=== PATIENT | female | born 1985 | race Caucasian/White ===

== ENCOUNTER 2018-10-15 15:52 | Emergency (ER) | payer BC ==
--- NOTE | 2018-10-15 17:20 | ER Document Report ---
ED Medical Screen (RME) - General Chief Complaint: Abdominal Pain Stated Complaint: ABDOMINAL PAIN Time Seen by Provider: 10/15/18 17:13 Primary Care Provider: CONRAD CASTANO MD [Primary Care Provider] - Follow up as needed TRAVEL OUTSIDE OF THE [place] IN LAST 30 DAYS: No - HPI Notes: 10/15/18 17:18 Patient is a 33-year-old female with a history of ovarian cyst who presents emergency department complaining of right lower quadrant/pelvic pain that began about a week ago. Patient states that her pain is sharp, but fluctuates in intensity. On occasion she will have some nausea without any vomiting. Patient states that she is urinating more frequently recently. She is having normal bowel movements. No other vaginal discharge, odor, or bleeding, but patient was treated for BV about a week ago. No surgical history to her abdomen. Denies KIM, fever, neck pain, URI, CP, SOB, v/d, or rash. I have treated and performed a rapid initial assessment of this patient. A comprehensive ED assessment and evaluation of the patient, analysis of test results and completion of medical decision making process will be conducted by additional ED providers. PHYSICAL EXAMINATION: GENERAL: Well-appearing, well-nourished and in no acute distress. A&Ox4. Answers questions appropriately. LUNGS: Breath sounds clear to auscultation bilaterally and equal. No wheezes rales or rhonchi. HEART: Regular rate and rhythm without murmurs, rubs, gallops. ABDOMEN: Soft, nondistended abdomen. No guarding, no rebound. Normal bowel sounds present. No CVA tenderness bilaterally. + mild rt lower abd vs pelvic tenderness (cannot elicit thorough abd exam w/o table, however). Extremities: No cyanosis, clubbing, or edema b/l. NEUROLOGICAL: Normal speech, normal gait. PSYCH: Normal mood, normal affect. - Related Data Allergies/Adverse Reactions: latex [Latex] Allergy (Intermediate, Verified 03/26/15 11:15) Hives Past Medical History Pulmonary Medical History: Reports: Hx Asthma, Hx Pneumonia Renal/ Medical History: Reports: Hx Kidney Stones. Denies: Hx Peritoneal Dialysis Psychiatric Medical History: Reports: Hx Depression Past Surgical History: Reports: Hx Kidney (Renal Surgery) - lithotripsy - Immunizations Hx Diphtheria, Pertussis, Tetanus Vaccination: Yes - 2007 Physical Exam - Vital signs Vitals: Temp Pulse Resp BP Pulse Ox 98.3 F 86 18 124/89 H 99 10/15/18 15:57 10/15/18 15:57 10/15/18 15:57 10/15/18 15:57 10/15/18 15:57 Course - Vital Signs Vital signs: Temp Pulse Resp BP Pulse Ox 98.3 F 86 18 124/89 H 99 10/15/18 15:57 10/15/18 15:57 10/15/18 15:57 10/15/18 15:57 10/15/18 15:57 Doctor's Discharge - Discharge Referrals: CONRAD CASTANO MD [Primary Care Provider] - Follow up as needed
[2018-10-15 18:44] LABS: ABSOLUTE BASOPHILS # (AUTO) 0.1 10^3/uL (0.0-0.2); ABSOLUTE LYMPHOCYTES (AUTO) 1.8 10^3/uL (0.5-4.7); ABSOLUTE MONOCYTES (AUTO) 0.5 10^3/uL (0.1-1.4); ABSOLUTE NEUT (AUTO) 7.4 10^3/uL (1.7-8.2); BASOPHILS % (AUTO) 0.6 % (0-2); EOSINOPHILS % (AUTO) 0.3 % (0-6); HEMATOCRIT 40.7 % (36.0-47.0); HEMOGLOBIN 13.9 g/dL (12.0-15.5); LYMPHOCYTES % (AUTO) 18.8 % (13-45); MEAN CORPUSCULAR HEMOGLOBIN 28.8 pg (27.0-33.4); MEAN CORPUSCULAR HGB CONC 34.1 g/dL (32.0-36.0); MEAN CORPUSCULAR VOLUME 85 fl (80-97); MONOCYTES % (AUTO) 4.8 % (3-13); PLATELET COUNT 251 10^3/uL (150-450); RED BLOOD COUNT 4.81 10^6/uL (3.72-5.28); RED CELL DISTRIBUTION WIDTH 12.8 % (11.5-14.0); SEGMENTED NEUTROPHILS % (AUTO) 75.5 % (42-78); TOTAL CELLS COUNTED % (AUTO) 100 %; WHITE BLOOD COUNT 9.8 10^3/uL (4.0-10.5)
[2018-10-15 18:45] LABS: APPEARANCE,URINE CLEAR; BILIRUBIN,URINE NEGATIVE (NEGATIVE); GLUCOSE, URINE NEGATIVE (NEGATIVE); KETONES,URINE NEGATIVE (NEGATIVE); LEUKOCYTE ESTERASE,URINE NEGATIVE (NEGATIVE); NITRITE,URINE POSITIVE (NEGATIVE); PROTEIN,URINE NEGATIVE (NEGATIVE); URINE SPECIFIC GRAVITY 1.006; UROBILINOGEN,URINE NEGATIVE mg/dL (<2.0)
[2018-10-15 18:47] LABS: COLOR,URINE DARK YELLOW
--- NOTE | 2018-10-15 18:57 | RADIOLOGY REPORT (SQ) ---
EXAM DESCRIPTION: U/S NON OB PEL TV W/DOPPLER COMPLETED DATE/TIME: 10/15/2018 6:18 pm REASON FOR STUDY: RLQ pain LMP 09/24/2018 COMPARISON: 04/21/2016 TECHNIQUE: Dynamic and static grayscale images acquired of the pelvis via transvaginal approach and recorded on PACS. Additional selected color Doppler and spectral images recorded. LIMITATIONS: None. FINDINGS: UTERUS: Contour normal. No mass. ENDOMETRIAL STRIPE: No focal or generalized thickening. No masses. CERVIX: 2.2 cm. No nabothian cysts. RIGHT OVARY AND DOPPLER: Normal size. No worrisome masses. Normal arterial vascular flow without evid ence for torsion. 3 cm cyst. LEFT OVARY AND DOPPLER: Ovary not seen. FREE FLUID: None noted. OTHER: Large amount of stool. MEASUREMENTS: UTERUS: 7.6 x 3.9 x 4.8 cm. ENDOMETRIAL STRIPE: 3 mm. RIGHT OVARY: 4.3 x 2.9 x 3.9 cm. LEFT OVARY: Ovary not seen. IMPRESSION: Right ovarian cyst, almost certainly benign. No additional follow-up is required for th is. Constipation. TECHNICAL DOCUMENTATION: JOB ID: [id number] [employer]- All Rights Reserved Rev-11/02 Reading location - IP/workstation name: [email or web address]
[2018-10-15 19:02] LABS: ALANINE AMINOTRANSFERASE 33 U/L (9-52); ALBUMIN 4.1 g/dL (3.5-5.0); ALKALINE PHOSPHATASE 58 U/L (38-126); ANION GAP 8 (5-19); ASPARTATE AMINO TRANSFERASE 23 U/L (14-36); BILIRUBIN,DIRECT 0.1 mg/dL (0.0-0.4); BILIRUBIN,TOTAL 0.5 mg/dL (0.2-1.3); BLOOD UREA NITROGEN 8 mg/dL (7-20); CALCIUM 9.6 mg/dL (8.4-10.2); CARBON DIOXIDE 25 mmol/L (22-30); CHLORIDE 106 mmol/L (98-107); GLUCOSE 89 mg/dL (75-110); POTASSIUM 3.8 mmol/L (3.6-5.0); SODIUM 139.1 mmol/L (137-145)
[2018-10-15] MEDS ORDERED: HYDROCODONE/ACETAMINOPHEN 5-325 MG TABLET PO ONE (22:27)
[2018-10-15] MEDS ORDERED: IBUPROFEN 600 MG TABLET PO ONE (22:27)
--- NOTE | 2018-10-15 22:30 | ER Document Report ---
ED General - General Chief Complaint: Abdominal Pain Stated Complaint: ABDOMINAL PAIN Time Seen by Provider: 10/15/18 17:13 Primary Care Provider: CONRAD CASTANO MD [Primary Care Provider] - Follow up as needed Mode of Arrival: Ambulatory Information source: Patient, Relative, [facility] Records Notes: Patient is a 33-year-old female with a history of ovarian cyst who presents emergency department complaining of right lower quadrant/pelvic pain that began about a week ago. Patient states that her pain is sharp, but fluctuates in intensity. On occasion she will have some nausea without any vomiting. Patient states that she is urinating more frequently recently. She is having normal bowel movements. No other vaginal discharge, odor, or bleeding, but patient was treated for BV about a week ago. No surgical history to her abdomen. Denies KIM, fever, neck pain, URI, CP, SOB, v/d, or rash. TRAVEL OUTSIDE OF THE [place] IN LAST 30 DAYS: No - HPI Onset: Last week Onset/Duration: Intermittent Quality of pain: Achy, Sharp Severity: Mild Associated symptoms: Nausea. denies: Chest pain, Chills, Fever, Vomiting Exacerbated by: Denies Relieved by: Denies Similar symptoms previously: Yes Recently seen / treated by doctor: No - Related Data Allergies/Adverse Reactions: latex [Latex] Allergy (Intermediate, Verified 03/26/15 11:15) Hives Past Medical History - General Information source: Patient, [facility] Records - Social History Smoking Status: Never Smoker Frequency of alcohol use: None Drug Abuse: None Lives with: Spouse/Significant other Family History: Reviewed & Not Pertinent Patient has suicidal ideation: No Patient has homicidal ideation: No Pulmonary Medical History: Reports: Hx Asthma, Hx Pneumonia Renal/ Medical History: Reports: Hx Kidney Stones. Denies: Hx Peritoneal Dialysis Psychiatric Medical History: Reports: Hx Depression Past Surgical History: Reports: Hx Kidney (Renal Surgery) - lithotripsy - Immunizations Hx Diphtheria, Pertussis, Tetanus Vaccination: Yes - 2007 Review of Systems - Review of Systems Notes: REVIEW OF SYSTEMS: CONSTITUTIONAL : Denies fever, chills, or sweats. Denies recent illness. Denies weight loss, recent hospitalizations. EENT: Denies visual changes, eye pain. Denies sore throat, oral lesions, difficulty swallowing. CARDIOVASCULAR: Denies chest pain. Denies palpitations. Denies lower extremity edema. RESPIRATORY: Denies cough. Denies shortness of breath, wheezing. GASTROINTESTINAL: Denies abdominal distention. Denies vomiting, or diarrhea. Denies blood in vomitus, stools, or per rectum. Denies black, tarry stools. Denies constipation. GENITOURINARY: Denies difficulty urinating, painful urination, frequency, b lood in urine, or vaginal discharge. MUSCULOSKELETAL: Denies back or neck pain or stiffness. Denies joint pain or swelling. SKIN: Denies rash, lesions or sores. HEMATOLOGIC : Denies easy bruising or bleeding. LYMPHATIC: Denies swollen glands. NEUROLOGICAL: Denies confusion or altered mental status. Denies loss of consciousness. Denies dizziness or lightheadedness. Denies headache. Denies weakness or paralysis. Denies problems difficulty with ambulation, slurred speech. Denies sensory loss, numbness, or tingling. Denies seizures. PSYCHIATRIC: Denies anxiety or stress. Denies depression, suicidal ideation, or homicidal ideation. Denies visual or auditory hallucinations. Physical Exam - Vital signs Vitals: Temp Pulse Resp BP Pulse Ox 98.3 F 86 18 124/89 H 99 10/15/18 15:57 10/15/18 15:57 10/15/18 15:57 10/15/18 15:57 10/15/18 15:57 - Notes Notes: PHYSICAL EXAMINATION: GENERAL: Well-appearing, well-nourished and in no acute distress. HEAD: Atraumatic, normocephalic. EYES: Pupils equal round and reactive to light, extraocular movements intact, conjunctiva are normal. ENT: Nares patent, oropharynx clear without exudates. Moist mucous membranes. NECK: Normal range of motion, supple without lymphadenopathy LUNGS: Breath sounds clear to auscultation bilaterally and equal. No wheezes rales or rhonchi. HEART: Regular rate and rhythm without murmurs ABDOMEN: Soft, nontender, nondistended abdomen. No guarding, no rebound. No masses appreciated. Female : deferred Musculoskeletal: Normal range of motion, no pitting or edema. No cyanosis. NEUROLOGICAL: Cranial nerves grossly intact. Normal speech, normal gait. Nor mal sensory, motor exams PSYCH: Normal mood, normal affect. SKIN: Warm, Dry, normal turgor, no rashes or lesions noted. Course - Re-evaluation Re-evalutation: 10/15/18 22:23 Laboratory 10/15/18 10/15/18 10/15/18 18:26 18:26 18:26 WBC 9.8 RBC 4.81 Hgb 13.9 Hct 40.7 MCV 85 MCH 28.8 MCHC 34.1 RDW 12.8 Plt Count 251 Seg Neutrophils % 75.5 Lymphocytes % 18.8 Monocytes % 4.8 Eosinophils % 0.3 Basophils % 0.6 Absolute Neutrophils 7.4 Absolute Lymphocytes 1.8 Absolute Monocytes 0.5 Absolute Eosinophils 0.0 Absolute Basophils 0.1 Sodium 139.1 Potassium 3.8 Chloride 106 Carbon Dioxide 25 Anion Gap 8 BUN 8 Creatinine 0.77 Est GFR ( Amer) > 60 Est GFR (Non-Af Amer) > 60 Glucose 89 Calcium 9.6 Total Bilirubin 0.5 Direct Bilirubin 0.1 Neonat Total Bilirubin Not Reportable Neonat Direct Bilirubin Not Reportable Neonat Indirect Bili Not Reportable AST 23 ALT 33 Alkaline Phosphatase 58 Total Protein 7.0 Albumin 4.1 Urine Color DARK YELLOW Urine Appearance CLEAR Urine pH 5.0 Ur Specific [place] 1.006 Urine Protein NEGATIVE Urine Glucose (UA) NEGATIVE Urine Ketones NEGATIVE Urine Blood SMALL H Urine Nitrite POSITIVE H Urine Bilirubin NEGATIVE Urine Urobilinogen NEGATIVE Ur Leukocyte Esterase NEGATIVE Urine WBC (Auto) 0 Urine RBC (Auto) 0 Urine Bacteria (Auto) TRACE Squamous Epi Cells Auto 1 Urine Mucus (Auto) RARE Urine Ascorbic Acid NEGATIVE Urine HCG, Qual NEGATIVE Transvaginal US 10/15/18 17:19 IMPRESSION: Right ovarian cyst, almost certainly benign. No additional follow- up is required for this. Constipation. Temp Pulse Resp BP Pulse Ox 98.3 F 86 18 124/89 H 99 10/15/18 15:57 10/15/18 15:57 10/15/18 15:57 10/15/18 15:57 10/15/18 15:57 - Vital Signs Vital signs: Temp Pulse Resp BP Pulse Ox 98.3 F 86 18 124/89 H 99 10/15/18 15:57 10/15/18 15:57 10/15/18 15:57 10/15/18 15:57 10/15/18 15:57 - Laboratory Result Diagrams: 10/15/18 18:26 10/15/18 18:26 Laboratory results interpreted by me: 10/15/18 18:26 Urine Blood SMALL H Urine Nitrite POSITIVE H Discharge - Discharge Clinical Impression: Ovarian cyst Qualifiers: Laterality: right Qualified Code(s): N83.201 - Unspecified ovarian cyst, right side Constipation Qualifiers: Constipation type: unspecified constipation type Qualified Code(s): K59.00 - Constipation, unspecified Condition: Good Disposition: HOME, SELF-CARE Instructions: Observation for Appendicitis ([facility]), Ovarian Cyst ([facility]), Constipation ([facility]) Additional Instructions: Follow up with your [id number] hours for further care or return to the ED IMMEDIATELY if symptoms worsen or you have any concerns. If you cannot afford to follow up with your primary care physician a list of low cost clinics have been provided at the end of your discharge papers as well. Most prescribed medications have multiple side effects. The safest thing to do is when filling your prescription speak to your pharmacist regarding possible interactions with your normal home medications and over the counter medications such as Ibuprofen, Tylenol, Benadryl. If you experience any symptoms that cause you discomfort or concern you should discontinue the medication immediately and return to the emergency room or call your primary care physician. Prescriptions: Ketorolac Tromethamine [Toradol 10 mg Tablet] 10 mg PO Q6HP PRN #12 tablet PRN Reason: Ondansetron [Zofran Odt 4 mg Tablet] 1 - 2 tab PO Q4H PRN #15 tab.rapdis PRN Reason: For Nausea/Vomiting Polyethylene Glycol 3350 [Miralax Powder 17 gm/Packet] 1 packet PO DAILY #10 pkg Forms: Elevated Blood Pressure, Return to Work Referrals: CONRAD CASTANO MD [Primary Care Provider] - Follow up as needed CANDICE JORGE MD [ACTIVE STAFF] - Follow up as needed
[2018-10-15 23:21] VITALS: BP 118/61
== END 2018-10-15 23:23 | disposition home or self-care (01) ==
LOC: ER 15:52
DX: N83.201 Unspecified ovarian cyst, right side (principal); K59.00 Constipation, unspecified; R10.31 Right lower quadrant pain; R10.2 Pelvic and perineal pain; R11.0 Nausea; J45.909 Unspecified asthma, uncomplicated; Z91.040 Latex allergy status; Z87.442 Personal history of urinary calculi
CPT/HCPCS: 36415; 76830; 80053; 81001; 81025; 85025; 93976; 99284

== ENCOUNTER → 2019-06-02 | Outpatient (CLI) | payer BC ==
--- NOTE | 2019-06-02 17:06 | RADIOLOGY REPORT (SQ) ---
EXAM DESCRIPTION: CHEST PA/LATERAL COMPLETED DATE/TIME: 06/02/2019 4:40 pm REASON FOR STUDY: MILD INTERMITTENT ASTHMA WITH (ACUTE) EXACERBATION COMPARISON: None. EXAM PARAMETERS: NUMBER OF VIEWS: two views TECHNIQUE: Digital Frontal and Lateral radiographic views of the chest acquired. RADIATION DOSE: NA LIMITATIONS: none FINDINGS: LUNGS AND PLEURA: No opacities, masses or pneumothorax. No pleural effusion. The lung fie lds are hyperexpanded. MEDIASTINUM AND HILAR STRUCTURES: No masses or contour abnormalities. HEART AND VASCULAR STRUCTURES: Heart normal size. No evidence for failure. BONES: No acute findings. HARDWARE: None in the chest. OTHER: No other significant finding. IMPRESSION: NO SIGNIFICANT RADIOGRAPHIC FINDING IN THE CHEST. TECHNICAL DOCUMENTATION: JOB ID: [id number] [employer]- All Rights Reserved Reading location - IP/workstation name: [email or web address]
== END ==
LOC: OD 16:22
PROVIDERS: ATTEND Physician Assistant
DX: J45.21 Mild intermittent asthma with (acute) exacerbation (principal)
CPT/HCPCS: 71046

== ENCOUNTER 2019-06-05 06:13 | Emergency (ER) | payer BC ==
[2019-06-05 07:26] LABS: ABSOLUTE BASOPHILS # (AUTO) 0.1 10^3/uL (0.0-0.2); ABSOLUTE EOSINOPHILS # (AUTO) 0.1 10^3/uL (0.0-0.6); ABSOLUTE LYMPHOCYTES (AUTO) 2.8 10^3/uL (0.5-4.7); ABSOLUTE MONOCYTES (AUTO) 0.7 10^3/uL (0.1-1.4); ABSOLUTE NEUT (AUTO) 11.8 10^3/uL (1.7-8.2); APPEARANCE,URINE CLEAR; BASOPHILS % (AUTO) 0.5 % (0-2); BILIRUBIN,URINE NEGATIVE (NEGATIVE); EOSINOPHILS % (AUTO) 0.7 % (0-6); GLUCOSE, URINE NEGATIVE (NEGATIVE); HEMATOCRIT 40.7 % (36.0-47.0); HEMOGLOBIN 13.6 g/dL (12.0-15.5); KETONES,URINE NEGATIVE (NEGATIVE); LEUKOCYTE ESTERASE,URINE NEGATIVE (NEGATIVE); LYMPHOCYTES % (AUTO) 17.9 % (13-45); MEAN CORPUSCULAR HEMOGLOBIN 28.4 pg (27.0-33.4); MEAN CORPUSCULAR HGB CONC 33.4 g/dL (32.0-36.0); MEAN CORPUSCULAR VOLUME 85 fl (80-97); MONOCYTES % (AUTO) 4.5 % (3-13); NITRITE,URINE NEGATIVE (NEGATIVE); PLATELET COUNT 312 10^3/uL (150-450); PROTEIN,URINE NEGATIVE (NEGATIVE); RED BLOOD COUNT 4.79 10^6/uL (3.72-5.28); RED CELL DISTRIBUTION WIDTH 13.4 % (11.5-14.0); SEGMENTED NEUTROPHILS % (AUTO) 76.4 % (42-78); TOTAL CELLS COUNTED % (AUTO) 100 %; URINE SPECIFIC GRAVITY 1.009; UROBILINOGEN,URINE NEGATIVE mg/dL (<2.0); WHITE BLOOD COUNT 15.5 10^3/uL (4.0-10.5)
[2019-06-05 07:27] LABS: COLOR,URINE STRAW
[2019-06-05 07:40] LABS: URINE AMPHETAMINES SCREEN NEGATIVE; URINE BARBITURATES SCREEN NEGATIVE; URINE COCAINE SCREEN NEGATIVE; URINE METHADONE SCREEN NEGATIVE; URINE PHENCYCLIDINE SCREEN NEGATIVE
[2019-06-05 07:42] LABS: ALBUMIN 4.6 g/dL (3.5-5.0); ALKALINE PHOSPHATASE 75 U/L (38-126); ANION GAP 12 (5-19); ASPARTATE AMINO TRANSFERASE 25 U/L (14-36); BILIRUBIN,DIRECT 0.1 mg/dL (0.0-0.4); BILIRUBIN,TOTAL 0.5 mg/dL (0.2-1.3); BLOOD UREA NITROGEN 13 mg/dL (7-20); CALCIUM 10.2 mg/dL (8.4-10.2); CARBON DIOXIDE 27 mmol/L (22-30); CHLORIDE 101 mmol/L (98-107); GLUCOSE 94 mg/dL (75-110); POTASSIUM 3.7 mmol/L (3.6-5.0); SALICYLATE 1.2 mg/dL (2.0-20.0); TOTAL PROTEIN 7.7 g/dL (6.3-8.2); URINE BENZODIAZEPINES SCREEN UNCONFIRMED POSITIVE; URINE MARIJUANA (THC) SCREEN UNCONFIRMED POSITIVE
[2019-06-05 07:45] LABS: ACETAMINOPHEN < 10 ug/mL (10-30); ALCOHOL < 10 mg/dL (NONE DETECTED)
--- NOTE | 2019-06-05 08:17 | RADIOLOGY REPORT (SQ) ---
EXAM DESCRIPTION: XR CHEST 2 VIEWS COMPLETED DATE/TME: 06/05/2019 06:34 CLINICAL HISTORY: 34 years, Female, cough COMPARISON: 06/02/2019 NUMBER OF VIEWS: Two TECHNIQUE: Two views of the chest LIMITATIONS: None. FINDINGS: Lungs are clear. The heart is normal in size. There is no pneumothorax or pleural effusion. There is no acute fracture. IMPRESSION: No acute cardiopulmonary abnormality copyright 2010 [employer]- All Rights Reserved
--- NOTE | 2019-06-05 08:20 | ER Document Report ---
Entered by RACH ROBERTS SCRIBE 06/05/19 0726 Acting as scribe for:TABBY SHANE MD ED General <ANGELES LYNCH - Last Filed: 06/05/19 09:40> - General Mode of Arrival: Ambulatory Information source: Patient, Parent TRAVEL OUTSIDE OF THE [place] IN LAST 30 DAYS: No - Related Data Home Medications: BCP, MVI, levaquin, prednisone, codeine cough med, valiums <TABBY SHANE - Last Filed: 06/05/19 09:46> - General Chief Complaint: Medical Clearance Stated Complaint: COUGH Time Seen by Provider: 06/05/19 07:08 Primary Care Provider: DAVID BENITEZ PA-C [Primary Care Provider] - Follow up as needed Notes: This 34 year old female patient with a history of substance abuse presents to the ED today with complaints of relapsing. Patient reports that she was prescribed 60 Xanax on 05/22 and took them all in x7 days. Patients states that she feels "shakey, likes she's in withdrawl." Patient notes that she was given 2 courses of Z-leatha for pneumonia recently and that she is now on levaquin and prednisone. Patient states that she is awaiting admission to [facility]. Patient had a chest x-ray here 3 days ago that was normal. (TABBY SHANE) - Related Data Allergies/Adverse Reactions: latex [Latex] Allergy (Intermediate, Verified 03/26/15 11:15) Hives Past Medical History - General Information source: Patient - Social History Smoking Status: Never Smoker Cigarette use (# per day): No Drug Abuse: Marijuana Family History: Reviewed & Not Pertinent Patient has suicidal ideation: No Patient has homicidal ideation: No Pulmonary Medical History: Reports: Hx Asthma, Hx Pneumonia Renal/ Medical History: Reports: Hx Kidney Stones Psychiatric Medical History: Reports: Hx Depression Past Surgical History: Reports: Hx Kidney (Renal Surgery) - lithotripsy - Immunizations Hx Diphtheria, Pertussis, Tetanus Vaccination: Yes - 2007 <TABBY SHNAE - Last Filed: 06/05/19 09:46> Review of Systems - Review of Systems Constitutional: See HPI, Other - shakes, withdrawl EENT: No symptoms reported Cardiovascular: No symptoms reported Respiratory: No symptoms reported Gastrointestinal: No symptoms reported Genitourinary: No symptoms reported Female Genitourinary: See HPI, Last menstrual period - x2 weeks ago Musculoskeletal: No symptoms reported Skin: No symptoms reported Hematologic/Lymphatic: No symptoms reported Neurological/Psychological: No symptoms reported -: Yes All other systems reviewed and negative <ACOSTATABBY - Last Filed: 06/05/19 09:46> Physical Exam - General General appearance: Alert In distress: None - HEENT Head: Normocephalic, Atraumatic Eyes: Normal Pupils: PERRL Mucous membranes: Moist - Respiratory Respiratory status: No respiratory distress Chest status: Nontender Breath sounds: Nonproductive cough - harsh, coarse dry cough. No: Wheezing Chest palpation: Normal - Cardiovascular Rhythm: Regular Heart sounds: Normal auscultation Murmur: No - Abdominal Inspection: Normal Distension: No distension Bowel sounds: Normal Tenderness: Nontender Organomegaly: No organomegaly - Back Back: Normal, Nontender - Extremities General upper extremity: Normal inspection General lower extremity: Normal inspection - Neurological Neuro grossly intact: Yes - Psychological Associated symptoms: Normal affect, Normal mood - Skin Skin Temperature: Warm Skin Moisture: Dry Skin Color: Normal <ACOSTATABBY - Last Filed: 06/05/19 09:46> - Vital signs Vitals: Temp Pulse Resp BP Pulse Ox 97.8 F 107 H 18 136/90 H 100 06/05/19 06:14 06/05/19 06:14 06/05/19 06:14 06/05/19 06:14 06/05/19 06:14 Course - Laboratory Result Diagrams: 06/05/19 07:08 06/05/19 07:08 <ANGELES LYNCH - Last Filed: 06/05/19 09:40> - Laboratory Result Diagrams: 06/05/19 07:08 06/05/19 07:08 - Diagnostic Test Radiology reviewed: Image reviewed, Reports reviewed - Chest x-ray is unremarkable. - EKG Interpretation by Nh EKG shows normal: Sinus rhythm, Spencer, Intervals, QRS Complexes, ST-T Waves Rate: Normal - 86 Rhythm: NSR <ACOSTATABBY - Last Filed: 06/05/19 09:46> - Vital Signs Vital signs: Temp Pulse Resp BP Pulse Ox 97.8 F 107 H 18 136/90 H 100 06/05/19 06:14 06/05/19 06:14 06/05/19 06:14 06/05/19 06:14 06/05/19 06:14 - Laboratory Laboratory results interpreted by me: 06/05/19 06/05/19 07:08 07:08 WBC 15.5 H Absolute Neuts (auto) 11.8 H Salicylates 1.2 L Acetaminophen < 10 L Discharge <ANGELES LYNCH - Last Filed: 06/05/19 09:40> <TABBY SHANE - Last Filed: 06/05/19 09:46> - Discharge Clinical Impression: Viral upper respiratory tract infection with cough Benzodiazepine withdrawal Qualifiers: Complication of substance-induced condition: uncomplicated Qualified Code(s): F13.230 - Sedative, hypnotic or anxiolytic dependence with withdrawal, uncomplicated Condition: Stable Disposition: HOME, SELF-CARE Additional Instructions: Upper Respiratory Illness: You have a viral infection of the respiratory passages -- a "cold." This common infection causes nasal congestion, drainage, and often sore throat and cough. It is caused by a virus and is highly contagious. The disease usually lasts a week or more, though the worst symptoms are usually over in 3 or 4 days. There is no "cure" for the viral infection -- it must run its course. If there is a complication, such as bacterial infection in the nose, sinuses, middle ear, or bronchial tubes, antibiotics may be required, but antibiotics won't affect the virus. If you smoke, you should STOP!! Drink plenty of fluids. A humidifier may help. An expectorant medication or decongestant may make you more comfortable. Use acetaminophen or ibuprofen for fever or aches. See the doctor if fever persists over two or three days, if there is any significant worsening of your symptoms, or if you simply fail to improve as expected. You have been evaluated both medical and behavioral teams and been deemed appropriate for discharge. You are recommended to follow-up with [facility] psychiatry as a walk-in upon discharge. You have also received resource information for detox facilities if you change your mind and would like assistance in detox. AT ANY TIME, IF YOUR SYMPTOMS CHANGE SIGNIFICANTLY OR WORSEN OR YOU DEVELOP NEW SYMPTOMS, RETURN TO THE EMERGENCY DEPARTMENT IMMEDIATELY FOR RE-EVALUATION. Referrals: DAVID BENITEZ PA-C [Primary Care Provider] - Follow up as needed Scribe Attestation: 06/05/19 08:21 I personally performed the services described in the documentation, reviewed and edited the documentation which was dictated to the scribe in my presence, and it accurately records my words and actions. (TABBY SHANE) I personally performed the services described in the documentation, reviewed and edited the documentation which was dictated to the scribe in my presence, and it accurately records my words and actions.
--- NOTE | 2019-06-05 08:46 | EKG REPORT ---
SEVERITY:- NORMAL ECG - SINUS RHYTHM : Confirmed by: Chandler Wright 05-Jun-2019 08:45:36
--- NOTE | 2019-06-05 09:38 | PSYCHOLOGICAL NOTE ---
Psych Note - Psych Note Date seen by psych provider: 06/05/19 Time seen by psych provider: 08:05 Psych Note: Reason for Consult: Detox This 34 year old female patient with a history of substance abuse presents to the ED today with complaints of relapsing. She discloses that she is on May 22 she went to the [facility] because she was having symptoms of a cold. 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 She states she told the provider that she needed assistance with her anxiety and was prescribed Xanax. Patient states she received 60 pills and took all of them in a week. She reports that she was stressed out and was not attempting to harm herself. She has a history of anxiety, depression and anorexia. She denies any difficulties currently with anorexia. Patient states she was attempting to get into [facility] for assistance with her substance abuse. Clinician discussed appropriate treatment options as currently patient's primary is substance abuse. Patient is alert and orientated to person, place, time and circumstance. Mood is euthymic with congruent affect. Patient denies suicidal and homicidal ideation. Delusions are absent and behaviors congruent with an intact reality based presentation I organized and linear thought process. Eye contact is well- maintained. Conversational speech is within normal rate, tone and prosody. Intellectual abilities appear to be within the average range. Attention and concentration are good. Insight, judgment, impulse control are fair. Diagnosis: Substance abuse Anxiety Medication recommendations per [facility]'s contracted psychiatrist Dr. Sekou CAMPOS are as follows no recommendations at this time Impression\plan: Patient is cleared from acute psychiatric services. Patient discloses primary concern with relapse in drugs abuse. She does have a history of anorexia, anxiety, and depression in addition to her substance abuse. She denies any thoughts of self harm or wanting to . She reports she took the xanax in an attempt at controlling her anxiety and because relapsed (ie denies she was trying to harm herself). Patient's mother is at bedside and is a strong support for the patient. Patient is recommended to follow-up with outpatient substance abuse treatment in addition to mental health treatment to address her anxiety. Patient was offered assistance in obtaining a voluntary bed at [facility] to assist with any withdrawal symptoms however the patient has graciously declined. Patient and patient's mother have been provided all resour ce information if they change her mind or need further assistance. Dr. Ruff was consulted to care management of this patient; attending physicians in agreement with recommendations and disposition.
[2019-06-05 10:14] VITALS: BP 121/77
== END 2019-06-05 10:14 | disposition home or self-care (01) ==
LOC: ER 06:13
DX: F13.239 Sedative, hypnotic or anxiolytic dependence with withdrawal, unspecified (principal); J06.9 Acute upper respiratory infection, unspecified; B97.89 Other viral agents as the cause of diseases classified elsewhere; F12.10 Cannabis abuse, uncomplicated; J45.909 Unspecified asthma, uncomplicated; R05 Cough; Z79.3 Long term (current) use of hormonal contraceptives; Z79.899 Other long term (current) drug therapy; Z91.040 Latex allergy status
CPT/HCPCS: 36415; 71046; 80053; 80307; 81001; 84703; 85025; 93005; 93010; 99284

== ENCOUNTER → 2019-11-07 | Outpatient (CLI) | payer BC ==
--- NOTE | 2019-11-07 12:54 | RADIOLOGY REPORT (SQ) ---
EXAM DESCRIPTION: CHEST PA/LATERAL IMAGES COMPLETED DATE/TIME: 11/07/2019 12:43 pm REASON FOR STUDY: LOCALIZED SWELLING, MASS AND LUMP, TRUNK COMPARISON: 06/05/2019 EXAM PARAMETERS: NUMBER OF VIEWS: two views TECHNIQUE: Digital Frontal and Lateral radiographic views of the chest acquired. RADIATION DOSE: NA LIMITATIONS: none FINDINGS: LUNGS AND PLEURA: No opacities, masses or pneumothorax. No pleural effusion. MEDIASTINUM AND HILAR STRUCTURES: No masses or contour abnormalities. HEART AND VASCULAR STRUCTURES: Heart normal size. No evidence for failure. BONES: No acute findings. HARDWARE: None in the chest. OTHER: No other significant finding. IMPRESSION: NO SIGNIFICANT RADIOGRAPHIC FINDING IN THE CHEST. TECHNICAL DOCUMENTATION: JOB ID: [id number] 2010 [employer]- All Rights Reserved Reading location - IP/workstation name: [email or web address]
== END ==
LOC: OD 12:10
PROVIDERS: ATTEND Physician Assistant
DX: R22.2 Localized swelling, mass and lump, trunk (principal)
CPT/HCPCS: 71046

== ENCOUNTER → 2020-03-08 | Outpatient (CLI) | payer BC | LOC: OD 10:10 | PROVIDERS: ATTEND Otolaryngology | DX: J30.9 Allergic rhinitis, unspecified (principal) | CPT/HCPCS: 36415; 82785; 86003 ==

== ENCOUNTER 2020-03-29 16:13 | Emergency (ER) | payer BC ==
--- NOTE | 2020-03-29 17:29 | ER Document Report ---
ED Medical Screen (RME) - General Chief Complaint: Shortness Of Breath Stated Complaint: SHORT OF BREATH Time Seen by Provider: 03/29/20 17:20 Primary Care Provider: KORI PRADO MD [Primary Care Provider] - Follow up as needed Mode of Arrival: Wheelchair Information source: Patient Notes: HPI; 35-year-old female presents to the emergency room complaining of chest tightness for the past 3 days. Also states it hurts when she takes a deep breath. Has tried using her inhalers without relief. Also complains of diarrhea for 4 days. One episode of vomiting today. Denies any recent travel. No COVID-19 exposure. Is on oral contraceptives, denies any previous history of PE or DVTs. PE: Alert and oriented x3. Mild distress noted. Lungs: Clear to auscultation without rales, rhonchi, wheezes. Heart: Regular rate and rhythm without murmurs, rubs, gallops. Patient was evaluated during the global COVID-19 pandemic and that diagnosis was suspected/considered upon their initial presentation. Their evaluation, treatment and testing was consistent with current guidelines for patients who presents with complaints or systems that may be related to COVID-19. I have greeted and performed a rapid initial assessment of this patient. A comprehensive ED assessment and evaluation of the patient, analysis of test results and completion of the medical decision making process will be conducted by additional ED providers. I have specifically instructed the patient or family members with the patient to immediately return to any nursing staff should anything change in the patient's condition or with their chief complaint. TRAVEL OUTSIDE OF THE [place] IN LAST 30 DAYS: No - Related Data Allergies/Adverse Reactions: latex [Latex] Allergy (Intermediate, Verified 03/29/20 17:19) Hives Home Medications: herpes medication Past Medical History - Social History Chew tobacco use (# tins/day): No Frequency of alcohol use: None Drug Abuse: Marijuana Pulmonary Medical History: Reports: Hx Asthma, Hx Pneumonia Renal/ Medical History: Reports: Hx Kidney Stones. Denies: Hx Peritoneal Dialysis Psychiatric Medical History: Reports: Hx Depression Past Surgical History: Reports: Hx Kidney (Renal Surgery) - lithotripsy - Immunizations Hx Diphtheria, Pertussis, Tetanus Vaccination: Yes - 2007 Physical Exam - Vital signs Vitals: Temp Pulse Resp BP Pulse Ox 98.2 F 93 18 133/86 H 100 03/29/20 17:02 03/29/20 17:02 03/29/20 17:02 03/29/20 17:02 03/29/20 17:02 Course - Vital Signs Vital signs: Temp Pulse Resp BP Pulse Ox 98.2 F 93 18 133/86 H 100 03/29/20 17:02 03/29/20 17:02 03/29/20 17:02 03/29/20 17:02 03/29/20 17:02 Doctor's Discharge - Discharge Referrals: KORI PRADO MD [Primary Care Provider] - Follow up as needed
--- NOTE | 2020-03-29 17:51 | RADIOLOGY REPORT (SQ) ---
EXAM DESCRIPTION: CHEST SINGLE VIEW IMAGES COMPLETED DATE/TIME: 03/29/2020 5:44 pm REASON FOR STUDY: cough COMPARISON: 11/07/2019 EXAM PARAMETERS: NUMBER OF VIEWS: One view. TECHNIQUE: Single frontal radiographic view of the chest acquired. RADIATION DOSE: NA LIMITATIONS: None. FINDINGS: LUNGS AND PLEURA: No opacities, masses or pneumothorax. No pleural effusion. MEDIASTINUM AND HILAR STRUCTURES: No masses. Contour normal. HEART AND VASCULAR STRUCTURES: Heart normal in size. Normal vasculature. BONES: No acute findings. HARDWARE: None in the chest. OTHER: No other significant finding. IMPRESSION: NO ACUTE RADIOGRAPHIC FINDING IN THE CHEST. TECHNICAL DOCUMENTATION: JOB ID: [id number] 2010 [employer]- All Rights Reserved Reading location - IP/workstation name: [email or web address]
--- NOTE | 2020-03-29 19:49 | EKG REPORT ---
SEVERITY:- BORDERLINE ECG - SINUS RHYTHM SHORT TX INTERVAL, ACCELERATED AV CONDUCTION : Confirmed by: Chandler Wright 29-Mar-2020 19:48:37
--- NOTE | 2020-03-29 19:58 | ER Document Report ---
ED General - General Chief Complaint: Shortness Of Breath Stated Complaint: SHORT OF BREATH Time Seen by Provider: 03/29/20 17:20 Primary Care Provider: KORI PRADO MD [ACTIVE STAFF] - Follow up as needed Mode of Arrival: Wheelchair Information source: Patient Notes: Patient is a 35-year-old female with history of asthma who comes in with some sinus pressure and drainage, malaise, mild shortness of breath with left-sided chest pain. Patient notes that it is a sharp pain when she inhales. No fevers no chills. TRAVEL OUTSIDE OF THE [place] IN LAST 30 DAYS: No - Related Data Allergies/Adverse Reactions: latex [Latex] Allergy (Intermediate, Verified 03/29/20 17:19) Hives Home Medications: herpes medication Past Medical History - General Information source: Patient - Social History Smoking Status: Never Smoker Chew tobacco use (# tins/day): No Frequency of alcohol use: None Drug Abuse: Marijuana Family History: Reviewed & Not Pertinent Patient has homicidal ideation: No Pulmonary Medical History: Reports: Hx Asthma, Hx Pneumonia Renal/ Medical History: Reports: Hx Kidney Stones. Denies: Hx Peritoneal Dialysis Psychiatric Medical History: Reports: Hx Depression Past Surgical History: Reports: Hx Kidney (Renal Surgery) - lithotripsy - Immunizations Hx Diphtheria, Pertussis, Tetanus Vaccination: Yes - 2007 Review of Systems - Review of Systems Notes: Constitutional: No fevers. No chills. EENT: No eye redness. No eye pain. No ear pain. No sore throat. Cardiovascular: + pleuritic chest pain. No palpitations. Respiratory: No cough. + shortness of breath. No respiratory distress. Gastrointestinal: No abdominal pain. No nausea, vomiting, or diarrhea. Genitourinary: Atraumatic. No lesions. No pain. No discharge. Musculoskeletal: Atraumatic. No swelling. No deformities. Skin: No rash or lesions. Lymphatic: No swollen lymph nodes. Neurologic: No headache. No syncope. Psychiatric: No suicidal or homicidal ideation. Physical Exam - Vital signs Vitals: Temp Pulse Resp BP Pulse Ox 98.2 F 93 18 133/86 H 100 03/29/20 17:02 03/29/20 17:02 03/29/20 17:02 03/29/20 17:02 03/29/20 17:02 - Notes Notes: General: Well-developed, well-nourished. In no acute distress. Non-toxic appearing. Cardiac: Well-perfused. Regular rate and rhythm. No murmurs, rubs, or gallops. Pulmonary: No respiratory distress. No cyanosis. Bilateral lung fiels are clear to auscultation. Abdominal: Non-distended. Non-rigid. Bowels sounds are present in all four quadrants. No guarding or rebound. HEENT: Head is atraumatic. Conjunctivae not reddened. No tearing. PERRL. EOMI. Orbits atraumatic. No periorbital swelling or erythema. Oropharynx is without erythema, swelling, or exudates. Neck: Supple. No adenopathy. No meningismus. Dermatologic: Warm with good turgor. No rash. Atraumatic. Chest: Atraumatic. No chest wall tenderness to palpation. Musculoskeletal: Moves all extremities well. No range of motion deficits. no muscular or joint tenderness. No paraspinal muscle tenderness. no midline spinal tenderness or step-off. Genitourinary: Examination deferred Neurologic: No gross neurologic deficits. Psychiatric: Normal mood. Course - Re-evaluation Re-evalutation: 03/29/20 19:56 History is concerning for possible Covid infection. She is not tachycardic. She is not visibly dyspneic. Her oxygen saturation is perfect. Her lung sounds are normal. However preceding this she had some malaise and sinus drainage and GI issues. She was seen in pit and orders were placed to evaluate her chest p ain. We will go ahead and keep those orders. Low suspicion for finding any other pathology. Given her vital signs and exam I have low suspicion for PE 03/29/20 22:00 Labs essentially unremarkable chest x-ray negative. EKG normal and troponin also normal. Again no respiratory distress, no hypoxia, no tachycardia, no swollen legs. Low probability for PE. Most likely viral or Covid. Will disc harge - Vital Signs Vital signs: Temp Pulse Resp BP Pulse Ox 98.3 F 90 18 124/66 100 03/29/20 21:29 03/29/20 21:29 03/29/20 21:29 03/29/20 21:29 03/29/20 21:29 - Laboratory Result Diagrams: 10/12/20 20:50 03/29/20 20:50 Laboratory results interpreted by me: 03/29/20 03/29/20 20:50 20:50 WBC 13.4 H Absolute Neuts (auto) 10.0 H Carbon Dioxide 19 L - EKG Interpretation by Me EKG shows normal: Sinus rhythm Rate: Normal Rhythm: NSR Additional EKG results interpreted by me: 03/29/20 19:[address] elevation or depression Discharge - Discharge Clinical Impression: Viral syndrome, Person under investigation for COVID-19 Condition: Good Disposition: HOME, SELF-CARE Instructions: COVID-19 Guidance for Persons Under Investigation, Fever ([facility]), Viral Syndrome ([facility]) Additional Instructions: Recommended to take zinc and vitamin D as well as drink plenty of fluid and get plenty of rest. Should be notified by [facility] or by the health department within 3 days about the results of your test. These remain quarantined until you know for sure what your test results are. Forms: Return to Work Referrals: KORI PRADO MD [ACTIVE STAFF] - Follow up as needed
[2020-03-29 21:20] LABS: ABSOLUTE BASOPHILS # (AUTO) 0.1 10^3/uL (0.0-0.2); ABSOLUTE LYMPHOCYTES (AUTO) 2.6 10^3/uL (0.5-4.7); ABSOLUTE MONOCYTES (AUTO) 0.6 10^3/uL (0.1-1.4); BASOPHILS % (AUTO) 0.5 % (0-2); EOSINOPHILS % (AUTO) 0.2 % (0-6); HEMATOCRIT 40.8 % (36.0-47.0); LYMPHOCYTES % (AUTO) 19.6 % (13-45); MEAN CORPUSCULAR HEMOGLOBIN 28.8 pg (27.0-33.4); MEAN CORPUSCULAR HGB CONC 34.2 g/dL (32.0-36.0); MEAN CORPUSCULAR VOLUME 84 fl (80-97); MONOCYTES % (AUTO) 4.5 % (3-13); PLATELET COUNT 313 10^3/uL (150-450); RED BLOOD COUNT 4.84 10^6/uL (3.72-5.28); RED CELL DISTRIBUTION WIDTH 12.9 % (11.5-14.0); SEGMENTED NEUTROPHILS % (AUTO) 75.2 % (42-78); TOTAL CELLS COUNTED % (AUTO) 100 %; WHITE BLOOD COUNT 13.4 10^3/uL (4.0-10.5)
[2020-03-29 21:41] LABS: ALBUMIN 4.8 g/dL (3.5-5.0); ALKALINE PHOSPHATASE 74 U/L (38-126); ANION GAP 16 (5-19); ASPARTATE AMINO TRANSFERASE 35 U/L (14-36); BILIRUBIN,DIRECT 0.2 mg/dL (0.0-0.4); BILIRUBIN,TOTAL 0.7 mg/dL (0.2-1.3); BLOOD UREA NITROGEN 10 mg/dL (7-20); CALCIUM 9.9 mg/dL (8.4-10.2); CARBON DIOXIDE 19 mmol/L (22-30); CHLORIDE 102 mmol/L (98-107); CREATINE KINASE 97 U/L (30-135); GLUCOSE 84 mg/dL (75-110); POTASSIUM 3.8 mmol/L (3.6-5.0); TOTAL PROTEIN 7.7 g/dL (6.3-8.2)
[2020-03-29 21:53] LABS: CREATINE KINASE MB 0.46 ng/mL (<4.55)
[2020-03-29 21:54] LABS: TROPONIN I < 0.012 ng/mL
[2020-03-29 23:20] VITALS: BP 122/62
== END 2020-03-29 23:21 | disposition home or self-care (01) ==
LOC: ER 16:13
DX: B34.9 Viral infection, unspecified (principal); Z20.828 Contact with and (suspected) exposure to other viral communicable diseases; R07.89 Other chest pain; R06.02 Shortness of breath; Z91.040 Latex allergy status
CPT/HCPCS: 93005; 99285; 36415; 82553; 82550; 84703; 85025; 80053; 84484; 71045; 93010; U0003; C9803; 87635